=== PATIENT | female | born 1960 | race Caucasian/White ===

== ENCOUNTER → 2025-02-14 | Outpatient (CLI) | payer MEDICARE, SELFPAY ==
--- NOTE | 2025-02-14 08:46 | MRI_ITS ---
PROCEDURE: SPINE CERVICAL (ROUTINE) 02/14/2025 REASON FOR EXAM: CERVICALGIA WITH RADICULAR SYMPTOMS TECHNIQUE: Procedure Code: MRISPC Modality: MR Procedure: SPINE CERVICAL (ROUTINE) Multiplanar and multisequence images were obtained without IV contrast administration. COMPARISON: None. FINDINGS: Vertebrae: Cervical vertebral body heights are preserved. Bone marrow signal is unremarkable. Alignment: Normal. No spondylolisthesis. Spinal Cord: Cervical spinal cord is of normal size and signal intensities. Structures at the foramen magnum are unremarkable. C2-3: Facet joints arthropathy. No foraminal or canal stenosis. C3-4: No significant foraminal or canal stenosis. Mild left facet joint hypertrophy. C4-5: Facet joints arthropathy. No significant foraminal or canal stenosis. C5-6: Facet joints arthropathy. No foraminal or canal stenosis. C6-7: Disc osteophyte complex. Uncovertebral hypertrophy. Severe bilateral foramina stenosis. Mild canal stenosis. C7-T1: No foraminal or canal stenosis. MRI/Spine Cervical (Routine) IMPRESSION: Severe bilateral foramina stenosis and mild canal stenosis at C6-C7. Reading Location: [id number]
--- NOTE | 2025-02-14 08:46 | MRI_ITS ---
PROCEDURE: BRAIN WITHOUT CONTRAST 02/14/2025 REASON FOR EXAM: CHRONIC MIGRAINES, CHANGE IN PATTERN TECHNIQUE: Procedure Code: MRIBR Modality: MR Procedure: BRAIN WITHOUT CONTRAST Multiplanar and multisequence images were obtained. COMPARISON: None. FINDINGS: There is a chronic lacunar infarction in the periventricular white matter of the left frontal lobe. There are few punctate foci of abnormal periventricular and subcortical white matter signal in both cerebral hemispheres consistent with chronic ischemic white matter disease. However, angiopathy associated with migraine headache could have a similar appearance. There is a normal sulcal pattern and gyral configuration. There is no evidence of acute intracranial hemorrhage or infarction. The monroe-white differentiation is well preserved. There is no evidence of restricted diffusion. The ventricles and basilar cisterns are normal. There are normal flow voids demonstrated in the recognized intracranial vessels. The cerebellum and brainstem are unremarkable. The cerebellar pontine angles are normal. The craniovertebral junction is normal. The sella and suprasellar regions are normal. The orbits and retro-orbital regions are unremarkable. 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 There is mild nasal septal deviation to the right. The paranasal sinuses are clear. The mastoid air cells are clear. There is normal bone marrow signal in the skull base and calvarium. MRI/Brain without Contrast IMPRESSION: 1. No evidence of acute intracranial pathology. 2. There is a chronic lacunar infarction in the periventricular white matter o f the left frontal lobe. 3. Foci of abnormal periventricular and subcortical white matter signal consis tent with chronic ischemic white matter disease, however, angiopathy associated with migraine headache could have a similar appe arance. 4. Other findings as noted. Reading Location: [place] [id number]
== END | disposition home or self-care (01) ==
PROVIDERS: PCP Student in an Organized Health Care Education/Training Program
DX: G43.909 Migraine, unspecified, not intractable, without status migrainosus (principal); M54.12 Radiculopathy, cervical region; M54.2 Cervicalgia
CPT/HCPCS: 70551; 72141